=== PATIENT | female | born 1965 | race Caucasian/White ===

== ENCOUNTER → 2018-07-24 | Outpatient (CLI) | payer OTHER ==
--- NOTE | 2018-07-24 16:52 | KCIC ---
CHEST PA LATERAL Clinical indications: Cough and fatigue. COMPARISON: None available. Findings: Old granulomatous disease is evident. There is mild atelectasis of the medial right lung base. No lung consolidation or pleural effusion or pulmonary edema or lung mass or pneumothorax is seen. The heart size, pulmonary vasculature, mediastinum and both joe are unremarkable. The osseous structures appear intact. Impression: Mild atelectasis of the medial right lung base. Electronically signed by: Tremayne Perez MD (07/24/2018 4:49 PM) [place] [id number]
== END | disposition home or self-care (01) ==
LOC: KCIC 12:29
PROVIDERS: ATTEND Clinical Nurse Specialist Family Health
DX: J98.11 Atelectasis (principal); D71 Functional disorders of polymorphonuclear neutrophils
CPT/HCPCS: 71046